=== PATIENT | male | born 1950 | race Caucasian/White ===

== ENCOUNTER → 2020-06-21 | Outpatient (CLI) | payer OTHER ==
[~2020-06-21] MED LIST: ALL DAY ALLERGY10 MG PO; GLUCOPHAGE1000 MG PO; GLUCOTROL 10 MG10 MG PO; LISINOPRIL20 MG PO; PERCOCET 10-321 EACH PO; PRAVASTATIN SOD10 MG PO; PROVENTIL HFA6.7 GM INH; RANITIDINE HCL150 MG PO; TRADJENTA5 MG PO; TUDORZA PRESS400 MCG INH; VENTOLIN/PROVE0.5 ML INH; VIT D PO
== END ==
LOC: EXRD 09:30 → HEART 5 10:00
DX: R60.0 Localized edema (principal); R20.0 Anesthesia of skin; R20.2 Paresthesia of skin; I65.23 Occlusion and stenosis of bilateral carotid arteries
CPT/HCPCS: 93306; 93880; 93970

== ENCOUNTER → 2021-02-08 | Outpatient (CLI) | payer OTHER | LOC: HEART 5 14:21 | DX: J43.9 Emphysema, unspecified (principal) | CPT/HCPCS: 94060; 94729 ==

== ENCOUNTER → 2021-06-06 | Outpatient (CLI) | payer OTHER | LOC: KOH-I 14:29 | DX: Z87.891 Personal history of nicotine dependence (principal); R91.8 Other nonspecific abnormal finding of lung field | CPT/HCPCS: 71271 ==